=== PATIENT | female | born 1955 | race Caucasian/White ===

== ENCOUNTER → 2017-12-21 | Outpatient (CLI) | payer BC | END | disposition home or self-care (01) | LOC: SURG 13:37 | PROVIDERS: ATTEND Anesthesiology | DX: M79.7 Fibromyalgia (principal); M35.00 Sjogren syndrome, unspecified | CPT/HCPCS: 99204 ==

== ENCOUNTER → 2018-01-25 | Outpatient (CLI) | payer BC | END | disposition home or self-care (01) | LOC: SURG 13:51 | PROVIDERS: ATTEND Anesthesiology | DX: M79.7 Fibromyalgia (principal); M35.00 Sjogren syndrome, unspecified; G89.4 Chronic pain syndrome | CPT/HCPCS: 99214 ==

== ENCOUNTER → 2018-06-08 | Outpatient (CLI) | payer BC ==
--- NOTE | 2018-06-08 14:26 | RAD ---
Bone densitometry scan, 06/08/2018: HISTORY: Ovarian failure, recent fracture The lumbar spine and right hip were examined utilizing a DEXA technique. The bone mineral density in the lumbar spine as measured from the L1-L4 levels is 0.80 g/sq cm. This yields a T score of -3.2 compatible with osteoporosis. The total T score at the right hip is -1.8 compatible with osteopenia. IMPRESSION: Osteoporosis in the lumbar spine. Electronically signed by: Viktor Grande MD (06/08/2018 2:23 PM) [facility]
== END | disposition home or self-care (01) ==
LOC: DXRAD 10:02
PROVIDERS: ATTEND Family Medicine
DX: M81.8 Other osteoporosis without current pathological fracture (principal)
CPT/HCPCS: 77080

== ENCOUNTER → 2018-06-21 | Outpatient (CLI) | payer BC | END | disposition home or self-care (01) | LOC: SURG 12:08 | PROVIDERS: ATTEND Anesthesiology | DX: M79.7 Fibromyalgia (principal); M79.2 Neuralgia and neuritis, unspecified; G90.522 Complex regional pain syndrome I of left lower limb; S82.892D Other fracture of left lower leg, subsequent encounter for closed fracture with routine healing; X58.XXXD Exposure to other specified factors, subsequent encounter; Z79.899 Other long term (current) drug therapy | CPT/HCPCS: 99214 ==

== ENCOUNTER → 2019-03-13 | Outpatient (CLI) | payer MEDICARE ==
--- NOTE | 2019-03-13 11:32 | RAD ---
EXAM: CT Abdomen and Pelvis without IV contrast CLINICAL HISTORY: RIGHT FLANK AND RLQ ABD PAIN, HX STONES, CHOLECYSTECTOMY, HYSTERECTOMY COMPARISON: none TECHNIQUE: Helical CT of the abdomen and pelvis without intravenous contrast. Axial, coronal and sagittal reformatted images were generated. PQRS compliance statement - One or more of the following individualized dose reduction techniques were utilized for this study: 1. Automated exposure control 2. Adjustment of the mA and/or kV according to patient size 3. Use of iterative reconstruction technique FINDINGS: Lack of intravenous contrast limits evaluation of solid organs, vasculature, and lymph nodes. Lower chest: Lung bases are clear. Coronary calcifications are seen. Abdomen and Pelvis: No focal liver lesion. Cholecystectomy clips are seen. No biliary duct dilatation. Pancreas is unremarkable. Spleen is normal in appearance. Adrenal glands are normal. No renal tract calculus. No definite renal lesion. No hydronephrosis or hydroureter. The bladder is decompressed. The appendix is normal. Extensive colonic diverticulosis particularly at the sigmoid colon without evidence for acute diverticulitis. No evidence for bowel obstruction. Changes of gastric surgery are seen. No abdominal or pelvic ascites. No abdominal or pelvic lymphadenopathy. There has been a hysterectomy. Aorta is normal in caliber with intermittent atherosclerotic calcifications. Small fat-containing periumbilical hernia. Bones: Mild leftward curvature of the lumbar spine possibly positional. No definite aggressive osseous lesion is seen. Lumbar spine degenerative changes are seen. IMPRESSION: No renal tract calculus. No hydronephrosis or hydroureter. The appendix is normal. Colonic diverticulosis, most prominent in the sigmoid colon, without evidence for acute diverticulitis. Electronically signed by: Danial Grider MD (03/13/2019 11:29 AM) [id number]
== END | disposition home or self-care (01) ==
LOC: CT 10:44
PROVIDERS: ATTEND Family Medicine
DX: K57.30 Diverticulosis of large intestine without perforation or abscess without bleeding (principal); K42.9 Umbilical hernia without obstruction or gangrene; I70.0 Atherosclerosis of aorta; Z90.49 Acquired absence of other specified parts of digestive tract
CPT/HCPCS: 74176

== ENCOUNTER → 2019-10-21 | Outpatient (CLI) | payer MEDICARE ==
--- NOTE | 2019-10-21 11:00 | RAD ---
Chest, PA and Lateral: Technique: PA and lateral views of the chest were obtained. History: Left rib pain, cough. Comparison: None. Findings: The heart and pulmonary vasculature appear within normal limits. The lungs are clear. The pleural margins are clear. Impression: No acute chest process is seen. Electronically signed by: Rafiq Johnson MD (10/21/2019 10:57 AM) [id number]
== END | disposition home or self-care (01) ==
LOC: DXRAD 10:19
PROVIDERS: ATTEND Family Medicine
DX: R07.81 Pleurodynia (principal)
CPT/HCPCS: 71046